=== PATIENT | female | born 1955 | race Caucasian/White ===

== ENCOUNTER → 2020-05-28 | Outpatient (CLI) | payer MEDICARE | END | disposition home or self-care (01) | LOC: CVU 10:07 | PROVIDERS: ATTEND Internal Medicine Cardiovascular Disease | DX: I08.0 Rheumatic disorders of both mitral and aortic valves (principal); I20.0 Unstable angina; I11.9 Hypertensive heart disease without heart failure; E78.5 Hyperlipidemia, unspecified; R94.31 Abnormal electrocardiogram [ECG] [EKG] | CPT/HCPCS: 93306; 93356 ==

== ENCOUNTER 2020-05-31 08:37 | Observation (INO) | payer MEDICARE ==
[~2020-05-31] VITALS: Ht 154.9 cm; Wt 87.1 kg
[2020-05-31 10:35] VITALS: BP 141/84
[2020-05-31] MEDS ORDERED: METO25TA2 PO (10:44)
[2020-05-31] MEDS ORDERED: LISI40TA PO (10:44)
[2020-05-31] MEDS ORDERED: TIOT18CA INH (10:44)
[2020-05-31] MEDS ORDERED: VITA1TAB19 PO (10:44)
[2020-05-31] MEDS ORDERED: NIAC500T9 PO (10:44)
[2020-05-31] MEDS ORDERED: MULT-658 PO (10:44)
[2020-05-31] MEDS ORDERED: MIDAZOLAM 1 MG/ML, 5ML ONE (11:07)
[2020-05-31] MEDS ORDERED: VERAPAMIL 2.5 MG/ML, 2ML ONE (11:08)
[2020-05-31] MEDS ORDERED: LIDOCAINE-MPF 1%, 5ML ONE (11:08)
[2020-05-31] MEDS ORDERED: HEPARIN 1,000 UNITS/ML, 10ML ONE (11:08)
[2020-05-31] MEDS ORDERED: TICAGRELOR 90 MG TABLET ONE (11:08)
[2020-05-31] MEDS ORDERED: FENTANYL PF 100 MCG/2ML ONE (11:08)
[2020-05-31] MEDS ORDERED: BIVALIRUDIN 250 MG ONE (11:08)
[2020-05-31] MEDS ORDERED: NITROGLYCERIN 30 MCG/ML, 20ML VIAL ONE (12:19)
[2020-05-31] MEDS ORDERED: ACETAMINOPHEN 325 MG TABLET PO PRN (13:00)
[2020-05-31] MEDS: ASPIRIN 81 MG TABLET EC PO SCH (13:00)
[2020-05-31] MEDS: SODIUM CHLORIDE 0.9% 1,000 ML IV SCH ×2 (13:00→22:58)
[2020-05-31] MEDS: ISOSORBIDE MONONITRATE ER 30 MG TABLET PO SCH (13:00)
[2020-05-31] MEDS ORDERED: ZOLPIDEM 5MG TABLET PO PRN (13:00)
[2020-05-31 20:12] VITALS: BP 124/79
[2020-05-31] MEDS ORDERED: METOPROLOL SUCCINATE 25 MG TAB.ER.24H PO SCH (21:00)
[2020-05-31] MEDS ORDERED: ATORVASTATIN 40 MG TABLET PO SCH (21:00)
[2020-05-31] MEDS: TICAGRELOR 90 MG TABLET PO SCH (22:56)
[2020-06-01 01:28] VITALS: BP 128/63
[2020-06-01 04:42] LABS: ANION GAP 5 mmol/L (5-15); CALCIUM 8.9 mg/dL (8.5-10.1); CHLORIDE 109 mmol/L (98-107); CREATININE 0.76 mg/dL (0.55-1.02)
[2020-06-01 08:29] VITALS: BP 133/79
[2020-06-01] MEDS ORDERED: MULTIVITAMIN 1 TABLET PO SCH (09:00)
[2020-06-01] MEDS ORDERED: LISINOPRIL 40 MG TABLET PO SCH (09:00)
[2020-06-01] MEDS ORDERED: TIOTROPIUM BROMIDE 18 MCG/INH INH SCH (09:00)
[2020-06-01] MEDS ORDERED: TICA90TA PO (09:34)
[2020-06-01] MEDS ORDERED: ACET325T26 PO (09:34)
[2020-06-01] MEDS ORDERED: ISOS30TA8 PO (09:34)
[2020-06-01] MEDS ORDERED: ATOR40TA78 PO (09:34)
[2020-06-01] MEDS ORDERED: ASPI81TA45 PO (09:34)
[2020-06-01] MEDS: ISOSORBIDE MONONITRATE ER 30 MG TABLET PO SCH (09:58)
[2020-06-01] MEDS: ASPIRIN 81 MG TABLET EC PO SCH (09:59)
[2020-06-01] MEDS: TICAGRELOR 90 MG TABLET PO SCH (09:59)
== END 2020-06-01 11:23 | disposition home or self-care (01) ==
LOC: CACL 08:37 → ORIP 12:34 → 5SO 17:14 → DCLOUNGE 06-01 11:23
PROVIDERS: ADMIT Internal Medicine Cardiovascular Disease; ATTEND Internal Medicine Cardiovascular Disease
DX: I20.0 Unstable angina (principal); I10 Essential (primary) hypertension; E78.5 Hyperlipidemia, unspecified; R94.31 Abnormal electrocardiogram [ECG] [EKG]; R01.1 Cardiac murmur, unspecified; Z79.82 Long term (current) use of aspirin; Z79.899 Other long term (current) drug therapy; Z87.891 Personal history of nicotine dependence
CPT/HCPCS: 36415; 80048; 85014; 85018; 93005; 93458; 96360; 99156; 99157; C1725; C1769; C1874; C1887; C1894; C9600; G0378; J0583; J1644; J2250; J3010; J7030; Q9967

== ENCOUNTER → 2020-07-25 | Outpatient (CLI) | payer MEDICARE ==
[~2020-07-25] MED LIST: ACET325T26 PO; ASPI81TA45 PO; ATOR40TA78 PO; ISOS30TA8 PO; LISI40TA PO; METO25TA2 PO; MULT-658 PO; NIAC500T9 PO; TICA90TA PO; TIOT18CA INH; VITA1TAB19 PO
[2020-07-25 10:05] LABS: ANION GAP 5 mmol/L (5-15); CHLORIDE 104 mmol/L (98-107)
[2020-07-25 10:08] LABS: CALCIUM 9.4 mg/dL (8.5-10.1); CREATININE 0.99 mg/dL (0.55-1.02)
== END | disposition home or self-care (01) ==
LOC: LAB 09:20
PROVIDERS: ATTEND Internal Medicine Cardiovascular Disease
DX: I10 Essential (primary) hypertension (principal); I20.0 Unstable angina; R01.1 Cardiac murmur, unspecified; R94.31 Abnormal electrocardiogram [ECG] [EKG]
CPT/HCPCS: 36415; 80048

== ENCOUNTER → 2020-10-17 | Outpatient (CLI) | payer MEDICARE ==
[~2020-10-17] MED LIST changes: -LISI40TA PO; +LISI40TA9 PO
[2020-10-17 11:22] LABS: ALANINE AMINOTRANSFERASE 35 U/L (12-78); ALBUMIN 3.9 g/dL (3.4-5.0); ANION GAP 3 mmol/L (5-15); CALCIUM 8.9 mg/dL (8.5-10.1); CHLORIDE 105 mmol/L (98-107); CHOLESTEROL, TOTAL 178 mg/dL (140-239); CREATININE 0.84 mg/dL (0.55-1.02)
[2020-10-17 11:24] LABS: ALKALINE PHOSPHATASE 123 U/L (45-117); BILIRUBIN,TOTAL 0.6 mg/dL (0.2-1.0); CHOL/HDL RATIO 3.8; HDL CHOL % 26 % (28-40); HDL CHOLESTEROL (DIRECT) 47 mg/dL (40-60); LDL CHOLESTEROL,CALCULATED 81 mg/dL (54-169); LDL/HDL RATIO 1.7 (0.5-3.0); TOTAL PROTEIN 7.4 g/dL (6.4-8.2); TRIGLYCERIDES 248 mg/dL (50-200); VLDL CHOLESTEROL 50 mg/dL (0-25)
== END | disposition home or self-care (01) ==
LOC: LAB 10:49
PROVIDERS: ATTEND Registered Nurse
DX: E78.2 Mixed hyperlipidemia (principal); I10 Essential (primary) hypertension; I25.10 Atherosclerotic heart disease of native coronary artery without angina pectoris
CPT/HCPCS: 36415; 80053; 80061